=== PATIENT | male | born 1985 | race Caucasian/White ===

== ENCOUNTER 2020-12-22 12:52 | Emergency (ER) | payer SELFPAY ==
--- NOTE | 2020-12-22 12:59 | ED.PDOC ---
History of Present Illness - General Time Seen by Provider: 12/22/20 12:58 - History of Present Illness Initial Comments: Patient states he vomited 2 times today. The vomit was slightly blood-tinged. Denies abdominal pain. Onset of symptoms occurred while sleeping. He now feels somewhat nauseated generally weak. He denies any black or bloody stools. Patient denies prior similar symptoms. Timing/Duration: 24 hours Severity: moderate Improving Factors: nothing Worsening Factors: nothing Associated Symptoms: denies symptoms Allergies/Adverse Reactions: Allergies NO KNOWN ALLERGY Allergy (Verified 12/22/20 13:10) Home Medications: Ambulatory Orders Ondansetron Odt [Zofran ODT] 4 mg PO Q6H PRN 3 Days #12 tab 12/22/20 Review of Systems - Review of Systems Constitutional: States: no symptoms reported, weakness - General Weakness, Mild. Denies: chills, fever EENTM: States: no symptoms reported Respiratory: States: no symptoms reported Cardiology: States: no symptoms reported Gastrointestinal/Abdominal: States: see HPI, vomiting. Denies: diarrhea Genitourinary: States: no symptoms reported Musculoskeletal: States: no symptoms reported Skin: States: no symptoms reported Neurological: States: no symptoms reported Endocrine: States: no symptoms reported Hematologic/Lymphatic: States: no symptoms reported Family Medical History - Family History Father Family History: Unknown Living Status: Unknown Physical Exam - Physical Exam General Appearance: Alert, Comfortable Eye Exam: bilateral normal Ears, Nose, Throat: normal ENT inspection, other - Moist mucous membranes Neck: non-tender, full range of motion, supple Respiratory: chest non-tender, lungs clear, normal breath sounds Cardiovascular/Chest: regular rate, rhythm Gastrointestinal/Abdominal: normal bowel sounds, non tender, soft Back Exam: normal inspection Extremity: normal range of motion 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 Patient is now asleep, Easily arousable, and comfortable. 12/22/20 20:35Medical decision makin-year-old previously healthy male with 2 episodes of vomiting which was minimally blood-tinged. Patient has a benign abdominal exam and unremarkable labs Except for isolated leukocytosis. Symptoms are consistent with acute gastritis probably, viral etiology. Patient is symptomatically improved and stable for outpatient treatment. - Results/Orders Results/Orders: Rapid nasopharyngeal swab for COVID-19 negative. Laboratory Results - last 24 hr 12/22/20 12/22/20 13:16 13:16 WBC 13.8 H RBC 5.14 Hgb 14.8 Hct 43.3 MCV 84.2 MCH 28.7 MCHC 34.1 RDW 12.9 Plt Count 218 MPV 9.0 Absolute Neuts (auto) 12.00 H Absolute Lymphs (auto) 1.10 Absolute Monos (auto) 0.60 Absolute Eos (auto) 0.10 Absolute Basos (auto) 0.10 Neutrophils % 86.5 H Lymphocytes % 7.9 L Monocytes % 4.6 Eosinophils % 0.5 L Basophils % 0.5 Sodium 138 Potassium 3.7 Chloride 102 Carbon Dioxide 27 Anion Gap 12.7 BUN 9 Creatinine 0.79 BUN/Creatinine Ratio 11.4 Random Glucose 114 H Serum Osmolality 275.2 Calcium 9.9 Total Bilirubin 0.9 AST 26 ALT 21 Alkaline Phosphatase 58 Serum Total Protein 7.6 Albumin 4.5 Globulin 3.1 Albumin/Globulin Ratio 1.5 Vital Signs - 24 hr 12/22/20 12/22/20 13:07 14:04 Temperature 96.6 F L Pulse Rate [ 71 63 Left Brachial] Respiratory 20 20 Rate Blood Pressure 130/90 112/75 [Left Arm] O2 Sat by Pulse 99 95 Oximetry Departure - Departure Clinical Impression: Vomiting, Gastritis Time of Disposition: 14:22 Disposition: Discharge to Home or Self Care Condition: Good Instructions: Nausea and Vomiting, Adult (DC), Gastritis (DC) Diet: other - Clear liquid diet, gradually advance as tolerated. Prescriptions: Ondansetron Odt [Zofran ODT] 4 mg PO Q6H PRN 3 Days #12 tab PRN Reason: Vomiting Home Medications: Ambulatory Orders Ondansetron Odt [Zofran ODT] 4 mg PO Q6H PRN 3 Days #12 tab 12/22/20 Additional Instructions: Return if you have Worsening and uncontrollable Vomiting, large amounts of blood in the vomit, or severe abdominal pain. Take 2 [id number] Pepcid pills twice a day For at least 1 week to reduce stomach acid. See your doctor for further care.
[2020-12-22] MEDS ORDERED: SODIUM CHLORIDE 0.9% 1000ML 1,000 ML IVS ONE (13:07)
[2020-12-22] MEDS ORDERED: FAMOTIDINE IV PREMIX 20 MG in PREMIX BAG 1 BAG IVPB ONE (13:08)
[2020-12-22] MEDS ORDERED: ONDANSETRON INJ 4 MG/2 ML VIAL IV ONE (13:08)
--- NOTE | 2020-12-22 13:43 | RAD ---
EXAM DESCRIPTION: Chest,1 View CLINICAL HISTORY: 35 years Male, Dyspnea COMPARISON: None. FINDINGS: One view/radiograph Heart size and pulmonary vessels are within normal limits. There is no pneumothorax or pleural effusion. The lungs are clear bilaterally. The soft tissues are unremarkable. No acute osseous findings. IMPRESSION: No acute cardiopulmonary abnormality. Electronically signed by: Anibal Bhardwaj MD 12/22/2020 1:41 PM [facility]
[2020-12-22 14:44] VITALS: BP 110/73; TEMP 98.1; O2SAT 94
== END 2020-12-22 14:43 | disposition home or self-care (01) ==
LOC: ER 12:52
DX: K29.70 Gastritis, unspecified, without bleeding (principal); Z20.822 Contact with and (suspected) exposure to COVID-19
CPT/HCPCS: 36415; 71045; 80053; 85025; 87635; J2405; J3490; J7030